=== PATIENT | male | born 1960 | race Two or more races ===

== ENCOUNTER 2017-10-29 15:13 | Emergency (ER) | payer OTHER ==
[~2017-10-29] VITALS: Ht 170.2 cm; Wt 98.9 kg
[~2017-10-29 15:13] MED LIST: CEPHALEXIN500 MG ORAL; IBUPROFEN600 MG ORAL; NKM; NORCO 5-325 TA1 EACH ORAL
[2017-10-29 15:20] VITALS: BP 126/81
[2017-10-29] MEDS ORDERED: IBUPROFEN600 MG ORAL (17:09)
--- NOTE | 2017-10-29 17:09 | Emergency Room Report ---
History of Present Illness General Chief Complaint: Pain Source: Patient Present Illness HPI 56 YO Male presents to the ED CO 08/30 in severity right elbow pain that he describes as throbbing and worse with use of right arm. pt. states pain was intermittent initially but has become more frequent. pt. reports repetitive right arm use at work. pt. state pain was most appreciable at work when attempting to reach for something up on a shelf. pt. denies appreciable trauma or fall. pt. also reports swelling to the left 5th digit for unknown amount of time. Denies pain in the 5th digit. Denies numbness tingling or loss of sensation or gross motor movements of the extremities. Allergies: Coded Allergies: No Known Allergies (Unverified , 10/29/17) Patient History Past Medical History: see triage record Past Surgical History: none Pertinent Family History: none Reviewed Nursing Documentation: PMH: Agreed; PSxH: Agreed Nursing Documentation-PMH Past Medical History: No Stated History Review of Systems All Other Systems: negative except mentioned in HPI Physical Exam Vital Signs Date Time Temp Pulse Resp B/P (MAP) Pulse Ox O2 Delivery O2 Flow Rate FiO2 10/29/17 15:15 98.7 94 17 126/81 95 Room Air 98.8 Sp02 EP Interpretation: reviewed, normal General Appearance: no apparent distress, alert, GCS 15, non-toxic Head: normocephalic, atraumatic ENT: hearing grossly normal, normal voice Neck: full range of motion Respiratory: lungs clear, normal breath sounds, speaking full sentences Cardiovascular #1: regular rate, rhythm Cardiovascular #2: 2+ radial (R), 2+ radial (L) Musculoskeletal: back normal, gait/station normal, normal range of motion, tender - mild lateral right elbow ttp, no obvious deformity. mild swelling noted. no bruises or erythema, FROM , there is significant swelling to the proximal portion of the left 5th digit, no erythem, no bruises. Neurologic: alert, oriented x3, responsive, motor strength/tone normal, sensory intact, speech normal, grossly normal Psychiatric: judgement/insight normal Skin: normal color, no rash, warm/dry, well hydrated Lymphatic: no adenopathy Medical Decision Making PA Attestation Dr. Mccoy is my supervising Physician whom patient management has been discussed with. Diagnostic Impression: Primary Impression: Right elbow tendinitis Additional Impressions: Overuse syndrome of elbow Qualified Codes: S56.911A - Strain of unspecified muscles, fascia and tendons at forearm level, right arm, initial encounter Swelling of finger joint of left hand ER Course 56 YO Male presents to the ED CO 08/30 in severity right elbow pain that he describes as throbbing and worse with use of right arm. pt. states pain was intermittent initially but has become more frequent. pt. reports repetitive right arm use at work. pt. state pain was most appreciable at work when attempting to reach for something up on a shelf. pt. denies appreciable trauma or fall. pt. also reports swelling to the left 5th digit for unknown amount of time. Denies pain in the 5th digit. Denies numbness tingling or loss of sensation or gross motor movements of the extremities. Ddx considered but are not limited to Fracture, dislocation, contusion, Sprain/ Strain/Spasm, Vital signs: are WNL, pt. is afebrile H&PE are most consistent with musculoskeletal injury will perform imaging to r/ o fractures/dislocations. ORDERS: - X-ray Right elbow 3 views and left hand 3 views. unremarkable other than degenerative changes. ED INTERVENTIONS: - pt. declines pain medications - Cheko wrap applied to the right elbow by wardrobe technician. Pt. remains neurovascularly intact. DISCHARGE: At this time pt. is stable for d/c to home. Will provide printed patient care instructions, and any necessary prescriptions. Care plan and follow up instructions have been discussed with the patient prior to discharge. Other X-Ray Diagnostic Results Other X-Ray Diagnostic Results #1: X-Ray ordered: Right Elbow # of Views/Limited Vs Complete: 3 View Indication: Pain EP Interpretation: Yes PA Xray: Interpretation reviewed, by supervising MD, and agrees with findings. Interpretation: no dislocation, no soft tissue swelling, no fractures Impression: Other - degenerative changes. Electronically Signed by: Lynne Falcon PA-C Other X-Ray Diagnostic Results #2: X-Ray ordered: Left Hand # of Views/Limited Vs Complete: 3 View Indication: Pain EP Interpretation: Yes PA Xray: Interpretation reviewed, by supervising MD, and agrees with findings. Interpretation: no dislocation, no soft tissue swelling, no fractures Impression: Other - moderate degerative changes to the PIP of the 5th digit. Electronically Signed by: Lynne Falcon PA-C Last Vital Signs Date Time Temp Pulse Resp B/P (MAP) Pulse Ox O2 Delivery O2 Flow Rate FiO2 10/29/17 15:20 98.7 94 17 126/81 95 Room Air 98.7 Disposition: HOME, SELF-CARE Condition: Stable Scripts Ibuprofen* (MOTRIN*) 600 Mg Tablet 600 MG ORAL THREE TIMES A DAY, #30 TAB 0 Refills Prov: Lynne Falcon 10/29/17 Referrals: NOT CHOSEN IPA/MD,REFERRING (PCP) Departure Forms: Return to Work Return to Work Date: Nov 01, 2017 Work Restrictions: No Heavy Lifting Other Restrictions: limited use of the right elbow Return to Full Activity: Nov 08, 2017 Patient Instructions: Muscle Pain, Adult Additional Instructions: Take medications as directed. Follow up with a Primary Care Provider in 3-5 days, even if your symptoms have resolved. 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 --Please review list of primary care clinics, if you do not already have a primary care provider Return sooner to ED if new symptoms occur, or current symptoms become worse. - Please note that this Emergency Department Report was dictated using [employer] intermediate technology software, occasionally this can lead to erroneous entry secondary to interpretation by the dictation equipment. Lynne Falcon Oct 29, 2017 17:09
[2017-10-29 17:24] VITALS: BP 112/78
--- NOTE | 2017-10-29 17:55 | Diagnostic Imaging Report ---
EXAM: XR Right Elbow Complete, 3 or More Views CLINICAL HISTORY: PAIN TECHNIQUE: Frontal, lateral and oblique views of the right elbow. COMPARISON: No relevant prior studies available. FINDINGS: Bones/joints: Unremarkable. No acute fracture. No dislocation. Soft tissues: Unremarkable. IMPRESSION: Normal right elbow x-rays.
--- NOTE | 2017-10-29 17:57 | Diagnostic Imaging Report ---
EXAM: XR Left Hand Complete, 3 or More Views CLINICAL HISTORY: PAIN TECHNIQUE: Frontal, lateral and oblique views of the left hand. COMPARISON: No relevant prior studies available. FINDINGS: Bones/joints: Degenerative changes are most pronounced at the interphalangeal joints of the left fifth digit, particularly the PIP, where there is joint space narrowing and osteophyte formation. Would also question a remote fracture-associated deformity of the left fifth metacarpal.. No acute fracture. No dislocation. Soft tissues: No radiopaque foreign body. IMPRESSION: No acute osseous abnormality. Degenerative changes, most pronounced to the left fifth digit
== END 2017-10-29 17:25 | disposition home or self-care (01) ==
LOC: EMR 15:40
DX: M77.11 Lateral epicondylitis, right elbow (principal); M70.88 Other soft tissue disorders related to use, overuse and pressure other site; M79.89 Other specified soft tissue disorders
CPT/HCPCS: 99284